=== PATIENT | male | born 1995 | race Caucasian/White ===

== ENCOUNTER 2018-05-03 20:06 | Emergency (ER) | payer BC ==
[~2018-05-03] VITALS: Ht 162.6 cm; Wt 65.0 kg
[2018-05-03 20:14] VITALS: Ht 162.6 cm; Wt 65.0 kg
[2018-05-03] MEDS ORDERED: SULF800T23 PO (20:38)
[2018-05-03] MEDS ORDERED: BCTROWC EXT (20:38)
--- NOTE | 2018-05-03 20:39 | EMERGENCY ROOM VISIT NOTE ---
History First contact with patient: 20:25 Chief Complaint: SKIN PROBLEM Stated Complaint: BUMBS ON LEG History of Present Illness The patient is a 22 year old male who presents to the Emergency Room with complaints of a bump on his left leg, behind his knee. He states that he just noticed this a few hours ago. 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 He states the area has not been draining. He reports minimal pain rated a 1/10. He denies any other rashes. He denies a personal history of any skin infections. He denies any fevers. Review of Systems A complete 6 point review of systems was reviewed with the patient with pertinent positives and negatives as per history of present illness. All else were negative. Past Medical/Surgical History Medical Problems: (1) No significant active problems Social History Smoking Status: Never Smoker Current/Historical Medications Scheduled Mupirocin (Bactroban 2% Oint), 1 APPLN EXT BID Sulfa/Trimethoprim (Bactrim Ds 800MG/160MG), 1 TAB PO BID Physical Exam Vital Signs Date Time Temp Pulse Resp B/P (MAP) Pulse Ox O2 Delivery O2 Flow Rate FiO2 05/03/18 20:14 37.1 71 18 137/89 97 Room Air Physical Exam VITALS: Vitals are noted on the nurse's note and reviewed by myself. Vital signs stable. GENERAL: This is a 22-year-old male, in no acute distress, nondiaphoretic, well- developed well-nourished. SKIN: There is a small papule/vesicle to the posterior aspect of the left knee. A small amount of clear drainage is expressed on palpation. MUSCULOSKELETAL: Full range of motion of the left knee. NEURO: Patient was alert and oriented to person place and time. Medical Decision & Procedures Medical Decision Differential diagnosis includes infection, cellulitis, abscess, among others. The patient was provided as above. He has a small papule with some clear drainage to the posterior aspect of the left knee. A culture was obtained and is pending. Patient is leaving tomorrow for a wrestling camp in [place]. He will be given a prescription for Bactroban ointment to apply to the area. He was also given a prescription for Bactrim in case his symptoms worsen significantly or do not begin to improve. He was advised not to take this initially, but use the Bactroban for the first few days. He was advised to keep the area clean and dry. He verbalized understanding of my assessment and treatment plan and was discharged home in good condition. Medication Reconcilliation Current Medication List: was personally reviewed by me Blood Pressure Screening Patient's blood pressure: Normal blood pressure Impression Primary Impression: Skin lesion of left leg Departure Information Dispostion Home / Self-Care Condition GOOD Prescriptions Sulfa/Trimethoprim (Bactrim Ds 800MG/160MG) Tab 1 TAB PO BID for 7 Days, #14 TAB Prov: Negin Lenz PA-C 05/03/18 Mupirocin (Bactroban 2% Oint) 66 Appln/22 Gm Oint 1 APPLN EXT BID, #1 TUBE Prov: Negin Lenz PA-C 05/03/18 Referrals No Doctor, Assigned (PCP) Patient Instructions My [facility] Additional Instructions Proper wound care is essential for adequate wound healing and infection prevention. You can shower and clean the wound with soap and water. Do not scour over the wound, pat dry with a towel. Do not submerse the wound (i.e. bathe or swim) until the wound has fully healed. Apply the Bactroban ointment to the area twice daily for the next 1 week, or as needed until the wound completely heals. If the area enlarges or if you develop any further rash, you may begin the Bactrim as prescribed. If symptoms worsen significantly you should go to the closest emergency department for evaluation.
[2018-05-03 21:04] VITALS: BP 137/89; PULSE 71; TEMP 37.1; O2SAT 97
--- NOTE | 2018-05-04 15:50 | Pharmacy Progress Note ---
ED Pharmacist Culture FollowUp Date of Service: May 04, 2018. L knee surface drainage is growing Grp A strep. Pt was discharged w/ Rx for Bactroban oint which should cover this organism. He was also give a Rx for Bactrim DS PO BID x 7 days which may or may not cover this organism. Bactrim was given due to concern for staph. No change in therapy warranted at this time.
== END 2018-05-03 21:09 | disposition home or self-care (01) ==
LOC: C.EDB 20:08 → C.EDD 21:09
DX: L98.9 Disorder of the skin and subcutaneous tissue, unspecified (principal)